=== PATIENT | male | born 1960 | race Caucasian/White ===

== ENCOUNTER → 2020-08-19 13:23 | Outpatient (BNVA) | payer BC, SELFPAY | PROVIDERS: PCP Internal Medicine; Visit Provider Internal Medicine Cardiovascular Disease ==

== ENCOUNTER → 2021-04-15 08:49 | Outpatient (BNVA) | payer BC, SELFPAY | PROVIDERS: PCP Internal Medicine; Visit Provider Internal Medicine Cardiovascular Disease | DX: Z45.02 Encounter for adjustment and management of automatic implantable cardiac defibrillator (principal); G90.1 Familial dysautonomia [Riley-Day]; I51.7 Cardiomegaly | CPT/HCPCS: 93005 ==

== ENCOUNTER → 2021-09-26 07:19 | Outpatient (REF) | payer BC, SELFPAY ==
--- NOTE | 2021-09-26 07:22 | CA_ITS ---
Transthoracic Echocardiogram Patient (Last, First, Middle): Pawel Jaimes H Gender: Male Date of : 1960 Age: 60 Procedure Date: 09/26/2021 Procedure Type: Transthoracic Echocardiogram Location: OP Height: 182.88 cm Weight: 88.45 kg BSA: 2.11 m2 Heart Rate: bpm BP: 125 / 90 mmHg Correction Officer: Referring MD: Javi Melgoza MD Symptoms: I51.7 - Cardiomegaly Study Quality: Fair ECG Rhythm: Ventriculary paced rhythm Conclusions: - The left ventricular systolic function is normal. The calculated ejection fraction is 59% by biplane method. - Mildly increased right ventricular cavity size. RV basal diameter 4.4cm. - There is low normal right ventricular systolic function. TAPSE 1.7cm. - There is mild calcification of the aortic valve. - There is mild tricuspid valve regurgitation. - There is mild dilatation of the ascending aorta measuring 3.80 cm. Aortic arch has been measured at 4 cm, but suboptimal image for measurement. Consider repeating in 6 months. Findings Left Ventricle Normal left ventricular cavity size. There is normal left ventricular wall thickness. The left ventricular systolic function is normal. The calculated ejection fraction is 59% by biplane method. There is no evidence of regional wall motion abnormalities. There is mild septal and mild basal asymmetric hypertrophy. Right Ventricle Mildly increased right ventricular cavity size. There is low normal right ventricular systolic function. There is a pacemaker wire seen in the right ventricle. RV basal diameter 4.4cm. Atria Both atria are normal in size. Aortic Valve There is a normal trileaflet aortic valve. There is mild calcification of the aortic valve. There is no aortic valve stenosis. There is no aortic valve regurgitation. Mitral Valve The mitral valve appears normal. There is trace mitral valve regurgitation. There is no mitral valve stenosis. Pulmonic Valve The pulmonic valve was not well visualized. There is trace pulmonic valve regurgitation. Tricuspid Valve There is mild tricuspid valve regurgitation. The pulmonary artery systolic pressure is normal. Great Vessels There is mild dilatation of the ascending aorta measuring 3.80 cm. Aortic arch has been measured at 4 cm, but suboptimal image for measurement. Venous The inferior vena cava is normal in size and collapses greater than 50% with inspiration. Pericardium/Pleural Prominent epicardial adipose tissue noted. There is no evidence of pericardial effusion. Prior Study Comparison Changes noted compared to prior study dated: 03/05/2020. Slight increase in ascending aortic size. See comment on arch. Measurements 2D Linear Measurements IVSd: 0.96 0.6-0.9/0.6-1.0 cm LVIDd: 3.98 3.9-5.3/4.2-5.9 cm LVIDd Index: 1.89 2.4-3.2/2.2-3.1 cm/m2 LVIDs: 2.02 2.0-3.6 cm LVPWd: 1.00 0.7-1.1 cm LA Diam: 3.50 2.7-3.8/3.0-4.0 cm LAIDs Index: 1.66 1.5-2.3 cm/m2 LV Mass: 152.07 67-162/88-224 g LV Mass Index: 72.07 43-95/49-115 g/m2 LVOT Diam: 2.30 3.0+(-)1.3 cm 2D Systolic Function EF 4C: 59.50 >55% EF 2C: 56.50 >55% EF BiP: 59.10 >55% Mitral Valve MV Pk E: 0.46 MV PK A: 0.73 MV Decel Time: 227.00 E/A: 0.60 E'Lateral: 12.50 E'Medial: 6.42 E/E' Med: 7.10 E/E' Lat: 3.70 PHT: 67.00 MVA PHT: 3.28 Decel [place]: 2.02 Aortic Valve AoV Pk Joey: 1.12 AoV Mn Joey: 0.83 AoV VTI: 0.25 AoV Pk Grad: 5.00 Aov Mn Grad: 3.00 CAROL Cont.VTI: 3.39 LVOT LVOT Pk Joey: 0.95 LVOT Mn Joey: 0.64 LVOT VTI: 0.21 LVOT Pk Grad: 4.00 LVOT Mn Grad: 2.00 LVOT Diam: 2.30 LVOT Area: 4.15 Diastolic Function MV Pk E: 0.46 MV Pk A: 0.73 E/A: 0.60 E'Medial: 6.42 E/E' Med: 7.10 E' Laterial: 12.50 E/E' Lat: 3.70 Tricuspid Valve TR Pk Joey: 2.19 TR Pk Grad: 19.00 RA Press: 3.00 RVSP: 22.00 Great Vessels Aorta Sinus of Valsalva: 3.20 2.0-3.5 cm Ao Asc: 3.80 2.1-3.4 cm Ao Arch: 4.00 Updated in Other Vendor System with Status of Final Gabriel Bauer MD electronically signed on 09/26/2021 12:13:03 PM with status of Final
== END ==
LOC: HO.CARD 07:19
PROVIDERS: PCP Internal Medicine; Visit Provider Internal Medicine Cardiovascular Disease
DX: I51.7 Cardiomegaly (principal); D86.85 Sarcoid myocarditis
CPT/HCPCS: 93306

== ENCOUNTER → 2021-10-13 08:43 | Outpatient (BNVA) | payer BC, SELFPAY | PROVIDERS: PCP Internal Medicine; Visit Provider Internal Medicine Cardiovascular Disease | DX: Z13.89 Encounter for screening for other disorder (principal) ==

== ENCOUNTER 2021-11-18 13:49 | Outpatient (REF) | payer BC, SELFPAY ==
--- NOTE | ~2021-11-18 | US_ITS ---
EXAMINATION: US ABDOMEN COMPLETE CLINICAL INFORMATION: GERD. Abdominal pain. COMPARISON: No similar priors. TECHNIQUE: Real-time imaging of the abdominal viscera. FINDINGS: PANCREAS: Normal. ABDOMINAL AORTA: The proximal, mid, and distal segments are normal in caliber. INFERIOR VENA CAVA: Visualized portions are normal. LIVER: Normal. The liver is normal in size. The liver contour is normal. Parenchymal echogenicity is normal. No focal hepatic lesion. There is no intrahepatic biliary duct dilatation seen. GALLBLADDER: Normal. The gallbladder is physiologically distended without evidence of stones, sludge, polyps, wall thickening or pericholecystic fluid. COMMON BILE DUCT: Normal in caliber measuring 0.3 cm in diameter. RIGHT KIDNEY: There is a 2.3 x 1.5 x 1.8 cm simple cyst in the mid pole for which no imaging follow-up is recommended. No hydronephrosis or renal calculi. The kidney measures 10.8 cm in maximum dimension. LEFT KIDNEY: There is a 2.4 x 2.3 x 1.8 cm cyst in the midpole with peripheral hyperechoic foci, likely calcifications. No hydronephrosis or renal calculi. The kidney measures 10.9 cm in maximum dimension. SPLEEN: Normal. The spleen measures 9.6 cm in maximum dimension. FREE FLUID: None. US/US abdomen complete IMPRESSION: 1. There is a 2.4 cm minimally complicated cyst in the mid pole of the left kidney with peripheral calcifications, for which a follow-up ultrasound in 6-12 months is recommended. 2. Otherwise, normal examination.
== END 2021-11-18 13:50 | disposition home or self-care (01) ==
LOC: HO.US 13:49
PROVIDERS: Visit Provider Internal Medicine
DX: K21.9 Gastro-esophageal reflux disease without esophagitis (principal); R10.13 Epigastric pain
CPT/HCPCS: 76700

== ENCOUNTER 2022-01-30 06:20 | Day surgery (SDC) | payer BC, SELFPAY ==
[2022-01-23 16:37] VITALS: BMI 25.6
--- NOTE | 2022-01-27 08:30 | HO.ANESPROP2 ---
HPI - Anesthesia Eval Consult details Narrative: 61yo M for Upper Endoscopy and Colonoscopy ICD in situ Cardiac sarcoid - not active per 09/2021 cardiac note PMFSH Active Problems Active Problems: All Active Problems (Updated 10/13/21 @ 09:30 by Javi Melgoza MD) Enlarged thoracic aorta (Acute) Right ventricular enlargement (Acute) Dysautonomia (Acute) Cardiac sarcoidosis (Acute) ICD (implantable cardioverter-defibrillator) in place (Acute) Past Medical History Medical History Cardiac sarcoidosis Dysautonomia ICD (implantable cardioverter-defibrillator) in place Family History Family History Father Hypotensive syncope Mother No problems noted. Surgical History Surgical History History of permanent cardiac pacemaker placement Hx of colonoscopy Hx of hernia repair Hx of knee surgery Social History Social History Patient Tobacco Use Status: Former Tobacco user Are you DNR?: No Advance Directives: No Advance Directives Information Provided: Yes Recently lost weight without trying: No Nutrition Risks: No Nutritional Risk Meds Allergies Allergy/AdvReac Type Severity Reaction Status Date / Time No Known Allergies Allergy Unverified 03/04/20 15:16 Home Medications Medication Instructions Recorded Confirmed Last Taken Type atorvastatin 20 mg tablet 20 mg PO DAILY 08/19/20 01/30/22 01/29/22 History paroxetine HCl 10 mg tablet 10 mg PO DAILY 08/19/20 01/30/22 01/29/22 History metoprolol succinate 25 mg 25 mg PO DAILY 04/15/21 01/30/22 01/29/22 History tablet,extended release 24 hr famotidine 20 mg tablet (Heartburn 20 mg PO DAILY 01/30/22 01/30/22 01/29/22 History Prevention) omeprazole 20 mg capsule,delayed 20 mg PO BID 01/30/22 01/30/22 01/29/22 History release Exam Exam Date and Time: January 27, 2022 0830 Height,Weight and Vital Signs: Height 6 ft 1 in Weight 87.997 kg Narrative Narrative: ECHO 09/2021 Conclusions: - The left ventricular systolic function is normal.? The ? calculated ejection fraction is 59% by biplane method. ? - Mildly increased right ventricular cavity size. RV basal ? ? ? diameter 4.4cm.? - There is low normal right ventricular systolic function. TAPSE 1.7cm. ? - There is mild calcification of the aortic valve. ? - There is mild tricuspid valve regurgitation. ? - There is mild dilatation of the ascending aorta measuring 3.80 cm.? Aortic arch has been measured at 4 cm, but suboptimal image for measurement. Consider repeating in 6 months. ? ? EKG 03/2021 atrially paced rhythm, ventricularly sensed rhythm with PVCs Cardiac Device Check 09/2021 Details: Dual-chamber Medtronic ICD in place.? Programmed in MVP mode with rate response at 60 beats per minute.? Atrial pacing 60% of the time.? Ventricular pacing 10% of the time.? No arrhythmias noted.? Atrial ventricular sensing is excellent.? Atrial ventricular pacing thresholds excellent and reprogrammed to enhance battery life.? Pacing and shock lead impedance is stable.? Battery life is at about 13 months Assessment and Plan Assessment Anesthesia Assessment: Chart Reviewed
[2022-01-30 06:27] VITALS: BP 130/92; PULSE 77; RESP 17; TEMP 36.2; O2SAT 97
[2022-01-30] MEDS: Lactated Ringers 1,000 ML 50 ML IVCONT (06:46)
--- NOTE | 2022-01-30 07:13 | P.CONAN_ITS ---
[facility] Active Problems Active Problems: All Active Problems (Updated 10/13/21 @ 09:30 by Javi Melgoza MD) Enlarged thoracic aorta (Acute) Right ventricular enlargement (Acute) Dysautonomia (Acute) Cardiac sarcoidosis (Acute) ICD (implantable cardioverter-defibrillator) in place (Acute) Past Medical History Medical History Cardiac sarcoidosis Dysautonomia ICD (implantable cardioverter-defibrillator) in place Family History Family History Father Hypotensive syncope Mother No problems noted. Family history of problems with anesthesia: No Surgical History Surgical History History of permanent cardiac pacemaker placement Hx of colonoscopy Hx of hernia repair Hx of knee surgery History of Problems with Anesthesia: No Social History Social History Patient Tobacco Use Status: Former Tobacco user Are you DNR?: No Advance Directives: No Advance Directives Information Provided: Yes Recently lost weight without trying: No Nutrition Risks: No Nutritional Risk Meds Allergies Allergy/AdvReac Type Severity Reaction Status Date / Time No Known Allergies Allergy Unverified 03/04/20 15:16 Active Medications: Current Medications Lactated Ringer's (Lr) 1,000 mls @ 50 mls/hr IVCONT .Q20H CURTIS Last Admin: 01/30/22 06:46 Dose: 50 mls/hr Sodium Biphosphate/Sodium Phosphate (Sodium Phosphate,Brewster-Dibasic 133 Ml Enema) 133 ml KS ONCE PRN PRN Reason: Poor Colonoscopy Prep Results Home Medications Medication Instructions Recorded Confirmed Last Taken Type atorvastatin 20 mg tablet 20 mg PO DAILY 08/19/20 01/30/22 01/29/22 History paroxetine HCl 10 mg tablet 10 mg PO DAILY 08/19/20 01/30/22 01/29/22 History metoprolol succinate 25 mg 25 mg PO DAILY 04/15/21 01/30/22 01/29/22 History tablet,extended release 24 hr Exam Exam Date and Time: January 30, 202213 Height,Weight and Vital Signs: Height 6 ft 1 in Weight 87.997 kg Last Vital Signs Temp 97.2 F 01/30/22 06:27 Pulse 77 01/30/22 06:27 Resp 17 01/30/22 06:27 BP 130/92 H 01/30/22 06:27 Pulse Ox 97 01/30/22 06:27 O2 Del Method 01/30/22 06:27 Airway Mallampati Class: III TM Dist: >3cm Neck ROM: Full Loose/Missing/Broken Teeth: No Heart: rrr Lungs: clear Assessment and Plan Final Anesthetic Review Family History of Problems with Anesthesia: No History of Problems with Anesthesia: No NPO: Yes ASA Class: III Final Preanesthetic Review: No Changes in Pt Med Stat, Meds/Allgs Chart Reviewed, Consent Obtained/Reviewed and Anes Risks/Benef Reviewed Patient Risk: Intermediate Procedure Risk: Low Anesthetic Plan Anesthetic Plan: MAC: Disposition: Standard PACU
[2022-01-30 08:35] VITALS: BP 125/90; PULSE 62; RESP 20; TEMP 36.2; O2SAT 98
--- NOTE | 2022-01-30 08:41 | P.BOP_ITS ---
Brief Operative Note Date of Service: 01/30/22 Pre-op diagnosis: GERD, Cartagena's, Screening Post-op diagnosis: other (Colon polyps, Same) Procedure: EGD with bx, Colonoscopy to the cecum with bx/removal of polyps Surgeon: Pawel Shelton Anesthesia: MAC Was an Disaster Director used for this Procedure?: No Estimated blood loss (mL): 2.0 Pathology: other (A. EG Junction at 36cm B. Polyps at 60cm) Condition: stable Disposition: PACU
[2022-01-30 08:50] VITALS: BP 140/98; PULSE 61; RESP 16; TEMP 36.2; O2SAT 95
--- NOTE | 2022-01-30 10:04 | OP_ITS ---
SURGEON: Pawel Shelton MD INDICATIONS: The patient presents for evaluation of reflux, Cartagena esophagus, and colorectal cancer screening. Full consent obtained from him for this, including risks of bleeding and perforation. PREOPERATIVE DIAGNOSIS: POSTOPERATIVE DIAGNOSIS: PROCEDURE PERFORMED: Esophagogastroduodenoscopy with biopsies, and colonoscopy to the cecum and terminal ileum with biopsy removal of polyps. ESTIMATED BLOOD LOSS: COMPLICATIONS: ANESTHESIA: Monitored anesthesia care. ASSISTANTS: SPECIMENS: PREOPERATIVE DIAGNOSES: Gastroesophageal reflux, history of Cartagena esophagus, colorectal cancer screening. POSTOPERATIVE DIAGNOSES: Small hiatal hernia, colon polyps, diverticulosis and internal hemorrhoids. DESCRIPTION OF PROCEDURE: The patient was placed in the left lateral decubitus position. The Olympus video gastroscope was passed in the posterior oropharynx and upper esophagus under direct vision. The scope was passed slowly into the distal esophagus. The gastroesophageal junction appeared at 36 cm. There was some very minimal irregularity, consistent with reflux and possibly small areas of Cartagena mucosa. There was no esophagitis nor any sign of mass. There was a minimal hiatal hernia. The scope entered into the stomach and was advanced to pylorus. The duodenum was cannulated to the descending portion. The duodenum including the bulb appeared normal without mass or ulceration. Scope was withdrawn back in the stomach. The gastric antrum and body appeared normal with good peristalsis. Scope was retroflexed visualizing the proximal stomach carefully which appeared normal, without any sign of mass or ulceration, other than some hyperplastic appearing gastric polyps which had been biopsied on previous occasions. The previous fundoplication appeared to be intact. The scope was straightened and withdrawn back to the esophagus. Biopsies were obtained at the EG junction at 36 cm. Proximal to this, esophageal mucosa appeared normal. The scope was withdrawn from the patient. He was turned around for colonoscopy. The digital rectal exam revealed no abnormalities. The Olympus video pediatric colonoscope was entered into the rectum and advanced easily to the cecum. Once in the cecum, I did identify normal-appearing cecal pouch with appendiceal orifice and a normal-appearing ileocecal valve. The terminal ileum was cannulated and appeared normal. The scope was withdrawn back into the colon. The entire cecum and ileocecal valve appeared normal. The scope was slowly withdrawn assessing all mucosal surfaces carefully. Preparation was excellent. At 60 cm were 2 flat less than 5 mm polyps, which were each biopsied and completely removed with cold biopsy forceps. I did not visualize any other polyps, colitis, nor angiodysplasia. There was a mild amount of sigmoid diverticulosis. In the rectum, scope was retroflexed visualizing internal hemorrhoids, but no other pathology. The rectal mucosa appeared normal. The scope was straightened and withdrawn from the patient. He tolerated both procedures well and was returned to recovery area in stable condition. IMPRESSION: 1. Small colon polyps, status post biopsy removal. 2. Mild diverticulosis. 3. Internal hemorrhoids. 4. Small hiatal hernia, gastroesophageal reflux, history of Cartagena esophagus. PLAN: The results of biopsies will be checked. If the polyps are adenomas and the upper endoscopy biopsies do not show any dysplasia, I would recommend a repeat upper endoscopy and colonoscopy within 5 years. He was advised to continue his current regimen of omeprazole 40 mg b.i.d. and famotidine b.i.d. for relief of his reflux, which he reports currently is working well. I would not recommend any further workup at this time given that he has already had a fundoplication. If he is doing well, he would see me in the interim on a p.r.n. basis. Of note, I did remind him to follow up with his primary care physician about the renal cyst that I had advised him of previously. This has been discussed with his . MD JARET Jimenez/STANLEY / [id number]
== END 2022-01-30 09:19 | disposition home or self-care (01) ==
PROVIDERS: PCP Internal Medicine; Visit Provider Internal Medicine
PROC: (CPT 45380; principal; 2022-01-30 07:30)
DX: Z12.11 Encounter for screening for malignant neoplasm of colon (principal); D12.4 Benign neoplasm of descending colon; K57.30 Diverticulosis of large intestine without perforation or abscess without bleeding; K64.8 Other hemorrhoids; K21.9 Gastro-esophageal reflux disease without esophagitis; Z87.19 Personal history of other diseases of the digestive system; K44.9 Diaphragmatic hernia without obstruction or gangrene; K31.7 Polyp of stomach and duodenum; K22.70 Barrett's esophagus without dysplasia; D86.89 Sarcoidosis of other sites; I10 Essential (primary) hypertension; Z95.810 Presence of automatic (implantable) cardiac defibrillator; N28.1 Cyst of kidney, acquired; Z79.82 Long term (current) use of aspirin; Z79.899 Other long term (current) drug therapy; F41.1 Generalized anxiety disorder; Z87.891 Personal history of nicotine dependence
CPT/HCPCS: 45380; 43239; 88305

== ENCOUNTER → 2022-05-10 10:55 | Outpatient (BNVA) | payer BC, SELFPAY | PROVIDERS: PCP Internal Medicine; Referring Provider Internal Medicine; Visit Provider Internal Medicine Cardiovascular Disease | DX: G90.1 Familial dysautonomia [Riley-Day] (principal); I77.89 Other specified disorders of arteries and arterioles; Z95.810 Presence of automatic (implantable) cardiac defibrillator | CPT/HCPCS: 93005 ==

== ENCOUNTER → 2022-10-16 07:52 | Outpatient (REF) | payer BC, SELFPAY ==
--- NOTE | 2022-10-16 07:54 | CA_ITS ---
Transthoracic Echocardiogram Patient (Last, First, Middle): Pawel Jaimes H Gender: Male Date of : 1960 Age: 61 Procedure Date: 10/16/2022 Procedure Type: Transthoracic Echocardiogram Location: OP Height: 182.88 cm Weight: 86.18 kg BSA: 2.08 m2 Heart Rate: bpm BP: 142 / 90 mmHg Metal Treater: MAGDA Referring MD: Javi Melgoza MD Slitter And Cutter Operator: Javi Melgoza MD Symptoms: I77.89 - Other specified disorders of arteries and arterioles Study Quality: Adequate ECG Rhythm: Sinus Conclusions: - 1. Normal LV systolic function with mild LVH with impaired relaxation filling pattern 2. Trivial aortic regurgitation 3. Normal RV systolic pressure 4. Mildly dilated ascending aorta at 3.9 cm 5. No pericardial effusion Findings Left Ventricle Normal left ventricular size and systolic function. There is mildly increased left ventricular wall thickness. The visually estimated ejection fraction is between 55-60%. Spectral Doppler is indicative of an impaired relaxation filling pattern. E/E prime ratio is <8, consistent with normal filling pressures. Evidence suggests grade I (mild) diastolic dysfunction. Peak GLS is -17.9%, which is borderline. Right Ventricle Mildly increased right ventricular cavity size. There is normal right ventricular systolic function. Atria Both atria are normal in size. Interatrial shunt cannot be excluded. Aortic Valve The aortic valve structure and function is likely normal. There is no aortic valve stenosis. There is trace (trivial) aortic valve regurgitation. Mitral Valve There is mild anterior and posterior mitral leaflet thickening. There is trace mitral valve regurgitation. There is no mitral valve stenosis. Pulmonic Valve The pulmonic valve is likely normal. There is trace pulmonic valve regurgitation. Tricuspid Valve Normal tricuspid valve structure. There is mild tricuspid valve regurgitation. The right ventricular systolic pressure is normal. The right ventricular systolic pressure is 30 mmHg. Normal right atrial pressure. There is no evidence of pulmonary hypertension. Great Vessels The pulmonary artery was not well visualized. There is mild dilatation of the ascending aorta measuring 3.90 cm. Venous The inferior vena cava is normal in size and collapses greater than 50% with inspiration. Pericardium/Pleural There is no evidence of pericardial effusion. Measurements 2D Linear Measurements IVSd: 1.25 0.6-0.9/0.6-1.0 cm LVIDd: 3.84 3.9-5.3/4.2-5.9 cm LVIDd Index: 1.85 2.4-3.2/2.2-3.1 cm/m2 LVIDs: 2.32 2.0-3.6 cm LVPWd: 1.13 0.7-1.1 cm LA Diam: 3.30 2.7-3.8/3.0-4.0 cm LAIDs Index: 1.59 1.5-2.3 cm/m2 LV Mass: 191.38 67-162/88-224 g LV Mass Index: 92.01 43-95/49-115 g/m2 LVOT Diam: 2.10 3.0+(-)1.3 cm 2D Systolic Function EF 4C: 54.60 >55% EF 2C: 59.80 >55% EF BiP: 58.10 >55% Mitral Valve MV Pk E: 0.60 MV PK A: 0.70 MV Decel Time: 271.00 E/A: 0.90 E'Lateral: 8.70 E'Medial: 5.22 E/E' Med: 11.50 E/E' Lat: 6.90 PHT: 79.00 MVA PHT: 2.78 Decel Stevens: 2.21 Aortic Valve AoV Pk Joey: 1.00 AoV Mn Joey: 0.70 AoV VTI: 0.24 AoV Pk Grad: 4.00 Aov Mn Grad: 2.00 CAROL Cont.VTI: 2.66 LVOT LVOT Pk Joey: 0.78 LVOT Mn Joey: 0.52 LVOT VTI: 0.18 LVOT Pk Grad: 2.00 LVOT Mn Grad: 1.00 LVOT Diam: 2.10 LVOT Area: 3.46 Diastolic Function MV Pk E: 0.60 MV Pk A: 0.70 E/A: 0.90 E'Medial: 5.22 E/E' Med: 11.50 E' Laterial: 8.70 E/E' Lat: 6.90 Right Ventricle TAPSE (mm): 18.70 TVS' Joey: 11.60 Tricuspid Valve TR Pk Joey: 2.32 TR Pk Grad: 22.00 RA Press: 8.00 RVSP: 30.00 Great Vessels Aorta Sinus of Valsalva: 4.30 2.0-3.[address] [place]: 3.36 1.7-3.4 cm Ao Asc: 3.90 2.1-3.4 cm Updated in Other Vendor System with Status of Final Javi Melgoza MD electronically signed on 10/16/2022 11:19:22 AM with status of Final
== END ==
LOC: HO.CARD 07:52
PROVIDERS: PCP Internal Medicine; Visit Provider Internal Medicine Cardiovascular Disease
DX: I77.89 Other specified disorders of arteries and arterioles (principal)
CPT/HCPCS: 93306; 93356

== ENCOUNTER → 2022-10-20 10:06 | Outpatient (BNVA) | payer BC, SELFPAY | PROVIDERS: PCP Internal Medicine; Referring Provider Internal Medicine Cardiovascular Disease; Visit Provider Surgery ==

== ENCOUNTER → 2022-10-25 09:25 | Outpatient (BNVA) | payer BC, SELFPAY | PROVIDERS: PCP Internal Medicine; Referring Provider Internal Medicine; Visit Provider Internal Medicine Cardiovascular Disease | DX: I77.89 Other specified disorders of arteries and arterioles (principal); Z95.810 Presence of automatic (implantable) cardiac defibrillator | CPT/HCPCS: 93005 ==

== ENCOUNTER 2022-12-06 05:59 | Day surgery (SDC) | payer BC, SELFPAY ==
[2022-12-01 12:13] VITALS: BMI 27.3
--- NOTE | 2022-12-05 08:25 | MHC.SHP ---
Pre-Procedural Eval Section A Date of Service: 12/05/22 The patient is an INPATIENT: No Changes since office visit: No Cold of Flu in the past 2 weeks, No New Medical Problems, No Changes in Medication and No Patient answered all questions The History & Physical has been completed within 30 days and I have reviewed it.: Yes Section B Chief Complaint: Encounter for adjustment and management of automat Allergies: Allergies Allergy/AdvReac Type Severity Reaction Status Date / Time No Known Allergies Allergy Verified 12/01/22 11:57 Plan I have reviewed the history and physical and performed a pertinent physical examination on my patient. No changes have occurred unless specified. Time Spent With Patient Time: Total time managing care of this patient today ____ minutes.
--- NOTE | 2022-12-05 10:24 | P.CONAN_ITS ---
HPI - Anesthesia Eval Consult details Narrative: 61yo M for ICD Generator Change ICD in situ for Vent Tach, suspected cardiac sarcoid PMFSH Active Problems Active Problems: All Active Problems (Updated 12/01/22 @ 12:12 by Sierra Calderon RN) Right ventricular enlargement (Acute) Enlarged thoracic aorta (Acute) Pulse generator of implantable cardioverter-defibrillator (ICD) at end of life (Acute) Dysautonomia (Acute) Cardiac sarcoidosis (Acute) ICD (implantable cardioverter-defibrillator) in place (Acute) Past Medical History Medical History Anxiety Back pain Barretts esophagus Cardiac sarcoidosis Dysautonomia GERD (gastroesophageal reflux disease) ICD (implantable cardioverter-defibrillator) in place On beta watson at home Presence of combination internal cardiac defibrillator (ICD) and pacemaker Family History Family History Father Hypotensive syncope Mother No problems noted. Family history of problems with anesthesia: No Surgical History Surgical History History of esophagogastroduodenoscopy (EGD) History of permanent cardiac pacemaker placement Hx of colonoscopy Hx of hernia repair Hx of knee surgery History of Problems with Anesthesia: No Social History Social History Are you a primary senior care assistant to a significant other at home: No Do you presently have visiting nurse or other home services: No Alcohol intake: current Alcohol intake frequency: holidays/special occasions only Patient Tobacco Use Status: Former Tobacco user Quit Date: 1989 Tobacco use type: Cigarette Years Smoked: 4 +/- Meds Allergies Allergy/AdvReac Type Severity Reaction Status Date / Time No Known Allergies Allergy Verified 12/01/22 11:57 Home Medications Medication Instructions Recorded Confirmed Last Taken Type paroxetine HCl 10 mg tablet 10 mg PO DAILY 08/19/20 12/01/22 01/29/22 History metoprolol succinate 25 mg 25 mg PO DAILY 04/15/21 12/01/22 01/29/22 History tablet,extended release 24 hr famotidine 20 mg tablet (Heartburn 20 mg PO DAILY 01/30/22 12/01/2222 History Prevention) omeprazole 20 mg capsule,delayed 20 mg PO BID 01/30/22 12/01/22 01/29/22 History release amlodipine 2.5 mg tablet 2.5 mg PO DAILY 05/10/22 12/01/22 Unknown History atorvastatin 10 mg tablet 10 mg PO DAILY 05/10/22 12/01/22 Unknown History Exam Exam Date and Time: December 05, 2022 1024 Height,Weight and Vital Signs: Height 6 ft 1 in Weight 93.894 kg Narrative Narrative: Cardiac Device Check 10/2022 Details: Dual-chamber Medtronic ICD in place programmed in MVP mode with rate response at 60 beats per minute.? Patient is very active as per the device check.? Pacing and shock lead impedance is stable.? Atrial pacing about 65% of the time.? Ventricular pacing about 17% of the time.? No ventricular arrhythmias noted.? Battery life is [place] [id number] Cardiac Device Check, dual lead implantable defibrillator Procedure code (CPT) selection complete EKG 10/2022 Details: EKG shows normal sinus rhythm with first-degree AV block with nonspecific ST changes ECHO 10/2022 Conclusions: - 1.? Normal LV systolic function with mild LVH with impaired? ? relaxation filling pattern ? 2.? Trivial aortic regurgitation ? 3.? Normal RV systolic pressure? 4.? Mildly dilated ascending aorta at 3.9 cm ? 5.? No pericardial effusion? Assessment and Plan Assessment Anesthesia Assessment: Chart Reviewed Final Anesthetic Review Family History of Problems with Anesthesia: No History of Problems with Anesthesia: No
[2022-12-06 06:40] VITALS: BP 153/109; PULSE 64; RESP 16; TEMP 36.2; O2SAT 98
[2022-12-06] MEDS: Lactated Ringers 1,000 ML 50 ML IVCONT (06:48)
--- NOTE | 2022-12-06 07:59 | P.CONAN_ITS ---
[facility] Active Problems Active Problems: All Active Problems (Updated 12/01/22 @ 12:12 by Sierra Calderon RN) Right ventricular enlargement (Acute) Enlarged thoracic aorta (Acute) Pulse generator of implantable cardioverter-defibrillator (ICD) at end of life (Acute) Dysautonomia (Acute) Cardiac sarcoidosis (Acute) ICD (implantable cardioverter-defibrillator) in place (Acute) Past Medical History Medical History Anxiety Back pain Barretts esophagus Cardiac sarcoidosis Dysautonomia GERD (gastroesophageal reflux disease) ICD (implantable cardioverter-defibrillator) in place On beta watson at home Presence of combination internal cardiac defibrillator (ICD) and pacemaker Functional capacity: independent ambulation Family History Family History Father Hypotensive syncope Mother No problems noted. Family history of problems with anesthesia: No Surgical History Surgical History History of esophagogastroduodenoscopy (EGD) History of permanent cardiac pacemaker placement Hx of colonoscopy Hx of hernia repair Hx of knee surgery History of Problems with Anesthesia: No Social History Social History Are you a primary toddler caregiver to a significant other at home: No Do you presently have visiting nurse or other home services: No Alcohol intake: current Alcohol intake frequency: holidays/special occasions only Patient Tobacco Use Status: Former Tobacco user Quit Date: 1989 Tobacco use type: Cigarette Years Smoked: 4 +/- Use of substances other than those prescribed or required for medical reasons: No Have you been hit, kicked, punched, or otherwise hurt by someone within the past year? If so, by whom?: No Are you DNR?: No Advance Directives: No Advance Directives Information Provided: Yes Advance Directives on File: No Recently lost weight without trying: No Eating poorly because of decreased appetite: No Nutrition Risks: No Nutritional Risk Meds Allergies Allergy/AdvReac Type Severity Reaction Status Date / Time No Known Allergies Allergy Verified 12/01/22 11:57 Active Medications: Current Medications Lactated Ringer's (Lr) 1,000 mls @ 50 mls/hr IVCONT .Q20H CURTIS Last Admin: 12/06/22 06:48 Dose: 50 mls/hr Home Medications Medication Instructions Recorded Confirmed Last Taken Type paroxetine HCl 10 mg tablet 10 mg PO DAILY 08/19/20 12/01/22 01/29/22 History metoprolol succinate 25 mg 25 mg PO DAILY 04/15/21 12/01/22 01/29/22 History tablet,extended release 24 hr famotidine 20 mg tablet (Heartburn 20 mg PO DAILY 01/30/22 12/01/22 01/29/22 History Prevention) omeprazole 20 mg capsule,delayed 20 mg PO BID 01/30/22 12/01/22 01/29/22 History release amlodipine 2.5 mg tablet 2.5 mg PO DAILY 05/10/22 12/01/22 Unknown History atorvastatin 10 mg tablet 10 mg PO DAILY 05/10/22 12/01/22 Unknown History Exam Exam Date and Time: December 06, 2022 0759 Height,Weight and Vital Signs: Height 6 ft 1 in Weight 93.894 kg Last Vital Signs Temp 97.1 F 12/06/22 06:40 Pulse 64 12/06/22 06:40 Resp 16 12/06/22 06:40 BP 153/109 H 12/06/22 06:40 Pulse Ox 98 12/06/22 06:40 O2 Del Method Room Air 12/06/22 06:40 Airway Mallampati Class: II TM Dist: >3cm Neck ROM: Full Heart: RRR Lungs: CTA Assessment and Plan Final Anesthetic Review Family History of Problems with Anesthesia: No History of Problems with Anesthesia: No ASA Class: II Final Preanesthetic Review: Meds/Allgs Chart Reviewed, Consent Obtained/Reviewed and Anes Risks/Benef Reviewed Patient Risk: Intermediate Procedure Risk: Low Anesthetic Plan Anesthetic Plan: MAC: Disposition: Standard PACU
--- NOTE | 2022-12-06 08:09 | W.PM.OPN ---
Operative Note Operative Note Date of Service: 12/06/22 Narrative: Preoperative diagnosis: [] ICD generator depletion Postop diagnosis: [] Same Procedure [] generator replacement of ICD device Surgeon: [] Neil Housekeeping Director: [] izaiah Gilmore Type of Anesthesia: [] MAC Indication for surgery: [] Generator depletion Findings: [] Patient brought to the operating room, placed on operative table in supine position, after adequate level of MAC anesthesia was induced, the left chest was prepped and draped in usual sterile fashion. Patient underwent 1% lidocaine/0.5% Marcaine infiltration at the incision site from the prior scar from the previous generator placement and was carried down through skin, subcutaneous tissue were moderate amount of cicatrization and scarring were encountered. Generator pocket was identified and entered sharply. Generator was removed and atrial and ventricular leads were uneventfully changed, screwed in, secured, into the new generator which was then replaced into the pocket. Interrogation by [employer] showed the data to be stable to patient's preoperative values. Please refer to [employer] work sheet regarding these. Wound was irrigated, secured hemostasis, closed in the following manner; deep subcutaneous tissues were approximated using interrupted 3-0 Vicryl sutures. Interrupted inverted deep dermal 3-0 Vicryl sutures followed by running subcuticular 4-0 Vicryl suture were placed. Steri-Strips and sterile dressings were applied. Sponge, needle, and instrument counts were reported to be correct. Patient tolerated the procedure well and emerged anesthesia stable condition. EBL none
[2022-12-06 08:21] VITALS: BP 145/98; PULSE 60; RESP 16; TEMP 36.2; O2SAT 96
[2022-12-06 08:36] VITALS: BP 151/101; PULSE 60; RESP 16; O2SAT 95
[2022-12-06 08:50] VITALS: BP 158/102; PULSE 60; RESP 16; TEMP 36.2; O2SAT 95
== END 2022-12-06 09:47 | disposition home or self-care (01) ==
PROVIDERS: PCP Internal Medicine; Visit Provider Surgery
PROC: 0JPT0PZ Removal of Cardiac Rhythm Related Device from Trunk Subcutaneous Tissue and Fascia, Open Approach (ICD-10-PCS; CPT 33263; principal; 2022-12-06 07:30)
DX: Z45.02 Encounter for adjustment and management of automatic implantable cardiac defibrillator (principal); I51.7 Cardiomegaly; I77.810 Thoracic aortic ectasia; D86.85 Sarcoid myocarditis; G90.1 Familial dysautonomia [Riley-Day]; Z79.899 Other long term (current) drug therapy; Z87.891 Personal history of nicotine dependence
CPT/HCPCS: 33263; C1721; J0690; J2250; J2795; J3010

== ENCOUNTER → 2022-12-13 09:41 | Outpatient (BNVA) | payer BC, SELFPAY | PROVIDERS: PCP Internal Medicine; Visit Provider Surgery | DX: M75.42 Impingement syndrome of left shoulder (principal); Z95.810 Presence of automatic (implantable) cardiac defibrillator; Z98.890 Other specified postprocedural states | CPT/HCPCS: 20610; J3301 ==

== ENCOUNTER 2023-02-07 05:07 | Outpatient (REF) | payer BC, SELFPAY ==
--- NOTE | ~2023-02-07 | XR_ITS ---
EXAMINATION: XR SHOULDER, LEFT CLINICAL INFORMATION: Pain. COMPARISON: None available. TECHNIQUE: AP neutral and scapular Y views of the left shoulder are submitted. FINDINGS: Bony alignment and mineralization are normal. The glenohumeral joint is intact and shows mild osteoarthritic change. The acromioclavicular and coracoclavicular intervals are normal. No fracture or dislocation is seen. There is no soft tissue calcifications or foreign body. No left pneumothorax is seen. A subclavian pacemaker device is noted. XR/XR shoulder LT min 2V IMPRESSION: 1. There is mild osteoarthritic change of the left glenohumeral joint. 2. No fracture or dislocation is seen.
== END 2023-02-07 05:08 | disposition home or self-care (01) ==
LOC: HO.HOSX 05:07
PROVIDERS: Visit Provider Orthopaedic Surgery
DX: M25.512 Pain in left shoulder (principal); M75.42 Impingement syndrome of left shoulder; Z79.899 Other long term (current) drug therapy
CPT/HCPCS: 73030

== ENCOUNTER 2023-02-07 08:25 | Outpatient (AMB) | payer BC, SELFPAY ==
--- NOTE | 2023-02-07 08:39 | MHC.OFFVIS ---
Intake Vital Signs 02/07/23 08:40 Height 6 ft Weight 187 lb BMI 25.4 Intake Visit Reasons: OV-Left shoulder pain Intake Note: Pawel a 61 year old right hand dominant male who presents today for a follow up of left shoulder, last injection 12/13/22. Patient reports injection did not provide him with any relief and continues to have throbbing pain. He would like to discuss other options. Patient describes his pain as sharp in nature. He has increased pain when lifting his left hand above shoulder height. H he has also done physical therapy for 12 weeks over the last 6 months which aggravated his pain. He is not able to get an MRI because he has a pacemaker/defibrillator. He has tried Tylenol and anti-inflammatory medicines which gave him minimal relief. Allergies No Known Allergies Allergy (Verified 02/07/23 08:54) Medication List - Last Reconciled 02/07/23 by Jin Gooden MD amlodipine 2.5 mg PO DAILY atorvastatin 10 mg PO DAILY famotidine (Heartburn Prevention) 20 mg PO DAILY metoprolol succinate ER 25 mg PO DAILY omeprazole 20 mg PO BID oxycodone 5 mg PO Q4H PRN paroxetine HCl 10 mg PO DAILY PFSH Medical History Anxiety Back pain Barretts esophagus Cardiac sarcoidosis Dysautonomia GERD (gastroesophageal reflux disease) ICD (implantable cardioverter-defibrillator) in place On beta watson at home Presence of combination internal cardiac defibrillator (ICD) and pacemaker Surgical History History of esophagogastroduodenoscopy (EGD) History of permanent cardiac pacemaker placement Hx of colonoscopy Hx of hernia repair Hx of knee surgery Family History Father Hypotensive syncope Mother No problems noted. Social History Are you a primary hospice home care coordinator to a significant other at home: No Do you presently have visiting nurse or other home services: No Alcohol intake: current Alcohol intake frequency: holidays/special occasions only Patient Tobacco Use Status: Former Tobacco user Quit Date: 1989 Tobacco use type: Cigarette Years Smoked: 4 +/- Current occupational status: retired Current occupation: right hand dominant Physical Exam Vital Signs: BMI result Body Mass Index 25.4 Const Other: Well-nourished well-developed very friendly male awake alert and oriented x3 in no acute distress Extrem Other: Bilateral upper extremity examination shows good capillary refill, no skin lesions noted, normal sensation light touch Left shoulder examination shows decreased range of motion when compared to his right shoulder, 4+ out of 5 strength with supraspinatus testing, positive impingement signs, tenderness over his acromioclavicular joint, no instability Results Reviewed Results Reviewed: X-rays of the patient's left shoulder taken today show severe acromioclavicular joint narrowing, type 3 acromion, no acute bony abnormalities Assessment & Plan Assessment & Plan (1) Impingement syndrome of left shoulder: Code(s): M75.42 - Impingement syndrome of left shoulder Plan Mr. Jaimes presents with progressively worsening left shoulder pain and weakness due to impingement syndrome, acromioclavicular joint arthritis and possible full-thickness rotator cuff tearing. I had a lengthy discussion with the patient regarding the treatment options. At this point he appears to be failing continued non operative treatments. The risks and benefits of left shoulder surgery were discussed at length with the patient. The patient is interested in proceeding with surgery later this year. The surgery will most likely involve left shoulder diagnostic arthroscopy with distal clavicle excision, acromioplasty and rotator cuff repair showed a full-thickness tear be found the time of his surgery. The patient will continue with his range of motion exercises in the meantime. He will contact my office to pick a surgery date when he is ready to do so. Feel free to call me at any time should questions regarding his orthopedic management arise. I spent 22 minutes in reviewing the patient's records and imaging studies, seeing the patient and documenting in the medical record. Orders: Orders XR shoulder LT min 2V Today M25.512 - Pain in left shoulder Coding Level of Care Code Est Pt Level 2 (37114) Diagnoses Impingement syndrome of left shoulder M75.42
[2023-02-07 08:40] VITALS: BMI 25.4
== END 2023-02-07 09:12 | disposition home or self-care (01) ==
PROVIDERS: PCP Internal Medicine; Visit Provider Orthopaedic Surgery
DX: M75.42 Impingement syndrome of left shoulder (principal)
CPT/HCPCS: 99212

== ENCOUNTER 2023-05-01 08:49 | Outpatient (AMB) | payer BC, SELFPAY ==
[2023-05-01 09:08] VITALS: BP 118/70; PULSE 74; BMI 25.1
--- NOTE | 2023-05-01 09:08 | MHC.OFFVIS ---
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 He has been doing well. He has been starting to run but gets muscle cramps as not able to run much but stays active and walks. Blood pressures been generally well controlled. Denies any exertional chest pain shortness of breath. No lightheadedness, syncope. No prolonged palpitation irregular heartbeat or ICD discharge. No heart failure symptoms. [facility] Medical History (Updated 05/01/23 @ 09:25 by Javi Melgoza MD) Pulse generator of implantable cardioverter-defibrillator (ICD) at end of life Anxiety On beta watson at home Back pain Barretts esophagus GERD (gastroesophageal reflux disease) Dysautonomia Cardiac sarcoidosis ICD (implantable cardioverter-defibrillator) in place Surgical History History of esophagogastroduodenoscopy (EGD) Hx of colonoscopy History of permanent cardiac pacemaker placement Hx of hernia repair Hx of knee surgery Family History Father Hypotensive syncope Mother No problems noted. Social History Are you a primary patient care specialist to a significant other at home: No Do you presently have visiting nurse or other home services: No Alcohol intake: current Alcohol intake frequency: holidays/special occasions only Patient Tobacco Use Status: Former Tobacco user Quit Date: 1989 Tobacco use type: Cigarette Years Smoked: 4 +/- Current occupational status: retired Current occupation: right hand dominant Review of Systems Const Denies chills, Denies fatigue, Denies fever(s), Denies frequent falls, Denies weakness, Denies weight gain and Denies weight loss ENT Denies dizziness Card Denies chest pain, Denies leg edema, Denies lightheadedness, Denies palpitations, Denies dyspnea, Denies dyspnea on exertion, Denies orthopnea and Denies other (loss of consciousness) Resp Denies cough, Denies dyspnea and Denies dyspnea on exertion GI Denies hematochezia and Denies change in stool character Musc Denies abnormal gait, Denies muscle weakness, Denies numbness, Denies radiating pain into limb and Denies tingling Neuro Denies abnormal gait, Denies dizziness, Denies frequent falls, Denies numbness, Denies tingling and Denies weakness Endo Denies fatigue and Denies palpitations Physical Exam Vital Signs: Last Vital Signs Pulse 74 05/01/23 09:08 BP 118/70 05/01/23 09:08 BMI result Body Mass Index 25.1 Const General: cooperative, comfortable, no acute distress, alert, awake and Physically active Nutritional Appearance: average body habitus and obese Orientation/consciousness: patient oriented x3 Limitations: no limitations Neck Neck: Yes trachea midline, Yes supple and Yes no JVD Resp Effort & Inspection: normal respiratory effort Auscultation: clear to auscultation bilaterally Cardio Jugular venous distension: no JVD Palpation: normal PMI Rate: regular rate Rhythm: regular rhythm Heart sounds: S1 normal heart sound present and S2 normal heart sound present GI Auscultation: normal bowel sounds Skin General skin exam: no rashes or lesions noted Neuro General: patient oriented x3 and no focal motor deficits Extrem General: Yes no clubbing, cyanosis or edema Psych Appearance: grossly normal Office Procedures Cardiac Device Check Cardiac Device Check Details: Dual-chamber [employer] ICD in place. Programmed in MVP mode with rate response at 60 beats per minute. Atrial pacing 50% of time. Ventricular pacing about 7% of time. No arrhythmias detected. Atrial and ventricular pacing thresholds adequate and reprogrammed to enhance battery life. Pacing and shock lead impedance is within normal limits. Battery life is excellent about 11 years. Noted impedance monitoring with elevated OptiVol although this has normalized by itself. Patient had no symptoms [id number] Cardiac Device Check, dual lead implantable defibrillator Procedure code (CPT) selection complete EKG Details: EKG shows normal sinus rhythm with nonspecific T-wave changes 62175-[id number], Complete Assessment & Plan Assessment & Plan (1) Dysautonomia: Code(s): G90.1 - Familial dysautonomia [Errol-Day] Plan: Patient with significant history of dysautonomia, with significant blood pressure as well as orthostatic hypertension. Has done well on current regimen with increase fluid intake. Currently off Florinef therapy. He knows how to manage this. We discussed again management any understands. Continue orthostatic precautions. (2) Enlarged thoracic aorta: Code(s): I77.89 - Other specified disorders of arteries and arterioles Plan: Mildly enlarged thoracic aorta. Continue to monitor annually by echocardiogram. Continue aggressive blood pressure control which is currently well optimized advised to avoid sudden strenuous isometric exercise. (3) ICD (implantable cardioverter-defibrillator) in place: Code(s): Z95.810 - Presence of automatic (implantable) cardiac defibrillator Plan: ICD in place initially as a pacemaker for AV block and subsequently a nonsustained VT and suspected diagnosis of cardiac sarcoidosis. Patient subsequently had an upgrade to dual-chamber ICD. Pulse generator was recently changed. Patient has had no significant ventricular arrhythmias on metoprolol therapy. Continue the same. ICD is working well. Will continue to follow remotely. Will follow up in the clinic in 6 months time after echocardiogram. Thank you for allowing me to partake in his care Coding Level of Care Code Est Pt Level 4 (92002) Diagnoses Dysautonomia G90.1 Enlarged thoracic aorta I77.89 ICD (implantable cardioverter-defibrillator) in place Z95.810 CPT Codes Cardiac Device Check - Cardiac Device 5: 61325-RK Cardiac Device Check, dual lead implantable defibrillator ([id number]) EKG - CPT: 41253-[id number], Complete ([id number])
== END 2023-05-01 09:25 | disposition home or self-care (01) ==
PROVIDERS: Visit Provider Internal Medicine Cardiovascular Disease
DX: G90.1 Familial dysautonomia [Riley-Day] (principal); I77.89 Other specified disorders of arteries and arterioles; I44.30 Unspecified atrioventricular block; Z95.810 Presence of automatic (implantable) cardiac defibrillator
CPT/HCPCS: 93283; 99214

== ENCOUNTER → 2023-05-01 08:49 | Outpatient (BNVA) | payer BC, SELFPAY | PROVIDERS: Visit Provider Internal Medicine Cardiovascular Disease | DX: I77.89 Other specified disorders of arteries and arterioles (principal); R94.31 Abnormal electrocardiogram [ECG] [EKG]; D86.85 Sarcoid myocarditis; G90.1 Familial dysautonomia [Riley-Day]; Z87.891 Personal history of nicotine dependence; Z45.02 Encounter for adjustment and management of automatic implantable cardiac defibrillator | CPT/HCPCS: 93005 ==

== ENCOUNTER → 2023-10-30 07:58 | Outpatient (REF) | payer BC, SELFPAY ==
--- NOTE | 2023-10-30 08:01 | CA_ITS ---
Transthoracic Echocardiogram Patient (Last, First, Middle): Pawel Jaimes H Gender: Male Date of : 1960 Age: 62 Procedure Date: 10/30/2023 Procedure Type: Transthoracic Echocardiogram Location: OP Height: 182.88 cm Weight: 83.92 kg BSA: 2.06 m2 Heart Rate: bpm BP: 124 / 70 mmHg Health Services Information Specialist: Referring MD: Javi Melgoza MD Strategic Partnership Specialist: Javi Melgoza MD Symptoms: I77.89 - Other specified disorders of arteries and arterioles Study Quality: Fair ECG Rhythm: AV paced rhythm Conclusions: - 1. Normal LV ejection fraction at 65-70% with impaired relaxation filling pattern 2. Cardiac valvular Doppler is within normal limits 3. Normal RV systolic pressure 4. Mildly dilated ascending aorta 3.9 cm 5. No gross pericardial effusion Findings Left Ventricle Normal left ventricular size, thickness, and systolic function. The visually estimated ejection fraction is between 65-70%. Spectral Doppler is indicative of an impaired relaxation filling pattern. E/E prime ratio is between 8 and 15 consistent with indeterminate filling pressures. Right Ventricle Normal right ventricular cavity size and systolic function. There is an ICD wire seen in the right ventricle. Atria The left atrium is likely dilated. The right atrium is normal in size. A pacemaker wire is identified in the right atrium. Aortic Valve Normal aortic valve structure and function. There is no aortic valve stenosis. There is trace (trivial) aortic valve regurgitation. Mitral Valve Normal mitral valve structure and function. There is trace mitral valve regurgitation. There is no mitral valve stenosis. Pulmonic Valve The pulmonic valve was not well visualized. Tricuspid Valve Likely normal tricuspid valve structure and function. There is trace tricuspid valve regurgitation. The right ventricular systolic pressure is normal. The right ventricular systolic pressure is 29 mmHg. Normal right atrial pressure. There is no evidence of pulmonary hypertension. Great Vessels The pulmonary artery was not well visualized. There is mild dilatation of the ascending aorta measuring 3.80 cm. Venous The inferior vena cava is normal in size and collapses greater than 50% with inspiration. Pericardium/Pleural There is no evidence of pericardial effusion. Measurements 2D Linear Measurements IVSd: 1.11 0.6-0.9/0.6-1.0 cm LVIDd: 4.28 3.9-5.3/4.2-5.9 cm LVIDd Index: 2.08 2.4-3.2/2.2-3.1 cm/m2 LVIDs: 2.50 2.0-3.6 cm LVPWd: 0.93 0.7-1.1 cm Ao Root: 4.00 2.1-3.5 cm LA Diam: 3.90 2.7-3.8/3.0-4.0 cm LAIDs Index: 1.89 1.5-2.3 cm/m2 LV Mass: 180.87 67-162/88-224 g LV Mass Index: 87.80 43-95/49-115 g/m2 LVOT Diam: 2.30 3.0+(-)1.3 cm 2D Systolic Function EF 4C: 68.40 >55% EF 2C: 66.60 >55% EF BiP: 67.60 >55% Mitral Valve MV Pk E: 0.59 MV PK A: 0.77 MV Decel Time: 216.00 E/A: 0.80 E'Lateral: 14.30 E'Medial: 8.92 E/E' Med: 6.60 E/E' Lat: 4.10 PHT: 63.00 MVA PHT: 3.49 Decel [place]: 2.71 Aortic Valve AoV Pk Joey: 1.13 AoV Mn Joey: 0.71 AoV VTI: 0.31 AoV Pk Grad: 5.00 Aov Mn Grad: 2.00 CAROL Cont.VTI: 2.85 LVOT LVOT Pk Joey: 0.89 LVOT Mn Joey: 0.57 LVOT VTI: 0.22 LVOT Pk Grad: 3.00 LVOT Mn Grad: 2.00 LVOT Diam: 2.30 LVOT Area: 4.15 Diastolic Function MV Pk E: 0.59 MV Pk A: 0.77 E/A: 0.80 E'Medial: 8.92 E/E' Med: 6.60 E' Laterial: 14.30 E/E' Lat: 4.10 Right Ventricle TAPSE (mm): 27.00 TVS' Joey: 13.00 Tricuspid Valve TR Pk Joey: 2.55 TR Pk Grad: 26.00 RA Press: 3.00 RVSP: 29.00 Great Vessels Aorta Ao Root-2D: 4.00 2.0-3.7 cm Ao Asc: 3.90 2.1-3.4 cm Pulmonary Valve PV Pk Joey: 0.78 Peak PV Grad: 2.00 Updated in Other Vendor System with Status of Final Javi Melgoza MD electronically signed on 10/30/2023 10:39:22 AM with status of Final
== END ==
LOC: HO.CARD 07:58
PROVIDERS: PCP Internal Medicine; Visit Provider Internal Medicine Cardiovascular Disease
DX: I77.89 Other specified disorders of arteries and arterioles (principal)
CPT/HCPCS: 93306

== ENCOUNTER → 2023-10-30 08:01 | Outpatient (BNV) | payer BC, SELFPAY | PROVIDERS: PCP Internal Medicine; Visit Provider Internal Medicine Cardiovascular Disease | DX: I34.0 Nonrheumatic mitral (valve) insufficiency (principal) | CPT/HCPCS: 93306 ==

== ENCOUNTER 2023-11-05 11:00 | Outpatient (AMB) | payer BC, SELFPAY ==
[2023-11-05 11:12] VITALS: BP 140/70; PULSE 67; BMI 25.5
--- NOTE | 2023-11-05 11:12 | MHC.OFFVIS ---
Vital Signs 11/05/23 11:12 Height 6 ft Weight 187 lb 13.341 oz BMI 25.5 BP 140/70 H Blood Pressure Location Lt brachial Position Sitting Pulse 67 Intake Visit Reasons: 6 mth f/up w/ device ck Intake Note: pt is doing fine [employer] Required: No Accompanied by: Self / Same As Patient Allergies No Known Allergies Allergy (Verified 02/07/23 08:54) Medication List - Last Reconciled 11/05/23 by Javi Melgoza MD amlodipine 2.5 mg PO DAILY atorvastatin 10 mg PO DAILY famotidine (Heartburn Prevention) 20 mg PO DAILY hydralazine 10 mg PO BID PRN metoprolol succinate ER 25 mg PO DAILY omeprazole 20 mg PO BID paroxetine HCl 10 mg PO DAILY HPI Comments Details: Pawel comes for follow-up. In June 19May he had some shortness of breath that correlated increase OptiVol on the device monitoring system. However he did not take any diuretics. Since then his symptoms have been well controlled. He said he exercise regularly and has lot of energy and has no cardiac symptoms. Denies any palpitations, lightheadedness, syncope, ICD discharge. Takes all his medications. Recent echocardiogram shows normal LV ejection fraction with mildly dilated ascending aorta which is unchanged. Takes all his medications regularly. He takes his Florinef on variable doses based on how he is feeling. He does not monitor his blood pressure at home. [facility] Medical History Pulse generator of implantable cardioverter-defibrillator (ICD) at end of life Anxiety On beta watson at home Back pain Barretts esophagus GERD (gastroesophageal reflux disease) Dysautonomia Cardiac sarcoidosis ICD (implantable cardioverter-defibrillator) in place Surgical History History of esophagogastroduodenoscopy (EGD) Hx of colonoscopy History of permanent cardiac pacemaker placement Hx of hernia repair Hx of knee surgery Family History Father Hypotensive syncope Mother No problems noted. Social History Are you a primary care connector to a significant other at home: No Do you presently have visiting nurse or other home services: No Alcohol intake: current Alcohol intake frequency: holidays/special occasions only Patient Tobacco Use Status: Former Tobacco user Quit Date: 1989 Tobacco use type: Cigarette Years Smoked: 4 +/- Current occupational status: retired Current occupation: right hand dominant Review of Systems Const Denies chills, Denies fatigue, Denies fever(s), Denies frequent falls, Denies weakness, Denies weight gain and Denies weight loss ENT Denies dizziness Card Denies chest pain, Denies leg edema, Denies lightheadedness, Denies palpitations, Denies dyspnea and Denies dyspnea on exertion Resp Denies cough, Denies dyspnea and Denies dyspnea on exertion GI Denies hematochezia Musc Denies abnormal gait, Denies muscle weakness, Denies numbness, Denies radiating pain into limb and Denies tingling Neuro Denies abnormal gait, Denies dizziness, Denies frequent falls, Denies numbness, Denies tingling and Denies weakness Endo Denies fatigue and Denies palpitations Physical Exam Vital Signs: Last Vital Signs Pulse 67 11/05/23 11:12 BP 140/70 H 11/05/23 11:12 BMI result Body Mass Index 25.5 Const General: cooperative, comfortable, no acute distress, alert, awake and Physically active Nutritional Appearance: average body habitus and obese Orientation/consciousness: patient oriented x3 Limitations: no limitations Neck Neck: Yes trachea midline, Yes supple and Yes no JVD Resp Effort & Inspection: normal respiratory effort Auscultation: clear to auscultation bilaterally Cardio Jugular venous distension: no JVD Palpation: normal PMI Rate: regular rate Rhythm: regular rhythm Heart sounds: S1 normal heart sound present and S2 normal heart sound present GI Auscultation: normal bowel sounds Skin General skin exam: no rashes or lesions noted Neuro General: patient oriented x3 and no focal motor deficits Extrem General: Yes no clubbing, cyanosis or edema Psych Appearance: grossly normal Office Procedures Cardiac Device Check Cardiac Device Check Details: Dual-chamber Medtronic ICD in place. Programmed in MVP mode with rate response at 60 beats per minute. Ventricular pacing about 10% of the time. Atrial pacing about 48% of the time. No significant arrhythmias noted. Atrial pacing thresholds are excellent and reprogrammed to enhance battery life. Ventricular pacing thresholds adequate. Atrial ventricular sensing is excellent. Pacing and shock lead impedance is stable. Battery life is at about 10 years 78411-NP Cardiac Device Check, dual lead implantable defibrillator Procedure code (CPT) selection complete EKG Details: EKG shows normal sinus rhythm nonspecific T-wave changes 34216-Zokupqalklwyhpebb, Complete Assessment & Plan Assessment & Plan (1) ICD (implantable cardioverter-defibrillator) in place: Code(s): Z95.810 - Presence of automatic (implantable) cardiac defibrillator Category: Medical Plan: Dual-chamber ICD in place for prior history of AV block and subsequently having nonsustained VT and diagnose with cardiac sarcoidosis which time his dual-chamber pacemaker was upgraded to ICD placement in [place]. Since then he has been doing well. He has not had any significant worsening ventricular arrhythmias and/or ICD discharge. Continue metoprolol therapy. His recent echocardiogram shows normal LV systolic function. Avoidance of stimulants was discussed. Will continue to monitor for ICD function remotely. (2) Dysautonomia: Code(s): G90.1 - Familial dysautonomia [Errol-Day] Category: Medical Plan: Significant dysautonomia syndrome currently using Florinef as need be for his low blood pressure symptoms. Other times his blood pressures been significantly elevated he takes amlodipine on a daily basis and takes hydralazine as need be. Continue metoprolol therapy. Adequate hydration was discussed advised to call me with worsening symptoms although he knows how to manage his dysautonomia well. However advised him to monitor blood pressure intermittently at home. (3) Enlarged thoracic aorta: Code(s): I77.89 - Other specified disorders of arteries and arterioles Category: Medical Plan: Mildly enlarged thoracic aorta which has remained stable will follow with echocardiogram in 1 year's time. No surgical interventions required. Pathophysiology of aortic stenosis were discussed. Continue aggressive blood pressure control which starts with monitoring blood pressure at home intermittently. He understands and agrees. Will follow up in the clinic in 6 months time, sooner p.r.n.. Thank you for allowing me to partake in his Coding Level of Care Code Est Pt Level 4 (19776) Diagnoses ICD (implantable cardioverter-defibrillator) in place Z95.810 Dysautonomia G90.1 Enlarged thoracic aorta I77.89 CPT Codes Cardiac Device Check - Cardiac Device 5: 92941-PS Cardiac Device Check, dual lead implantable defibrillator ([id number]) EKG - CPT: 26191-Brlarxzmsbjlogrtm, Complete ([id number])
== END 2023-11-05 11:32 | disposition home or self-care (01) ==
PROVIDERS: PCP Internal Medicine; Visit Provider Internal Medicine Cardiovascular Disease
DX: G90.1 Familial dysautonomia [Riley-Day] (principal); I77.810 Thoracic aortic ectasia; Z95.810 Presence of automatic (implantable) cardiac defibrillator
CPT/HCPCS: 93010; 93283; 99214

== ENCOUNTER → 2023-11-05 11:00 | Outpatient (BNVA) | payer BC, SELFPAY | PROVIDERS: PCP Internal Medicine; Visit Provider Internal Medicine Cardiovascular Disease | DX: G90.1 Familial dysautonomia [Riley-Day] (principal); I77.89 Other specified disorders of arteries and arterioles; Z45.02 Encounter for adjustment and management of automatic implantable cardiac defibrillator | CPT/HCPCS: 93005 ==

== ENCOUNTER → 2025-01-19 09:46 | Outpatient (REF) | payer BC, SELFPAY ==
--- NOTE | 2025-01-19 09:48 | CA_ITS ---
Transthoracic Echocardiogram Patient (Last, First, Middle): Pawel Jaimes H Gender: Male Date of : 1960 Age: 64 Procedure Date: 01/19/2025 Procedure Type: Transthoracic Echocardiogram Location: OP Height: 182.88 cm Weight: 83.92 kg BSA: 2.06 m2 Heart Rate: bpm BP: 120 / 80 mmHg Teacher: MAGDA Referring MD: Javi Melgoza MD Symptoms: I77.89 - Other specified disorders of arteries and arterioles Study Quality: Adequate ECG Rhythm: Sinus Conclusions: - The left ventricular systolic function is normal. The calculated ejection fraction is 62% by biplane method. - No obvious valvular pathology seen on this study. - Top normal ascending aortic size at 3.7-3.8 cm. Findings Left Ventricle Normal left ventricular cavity size. The left ventricular systolic function is normal. The calculated ejection fraction is 62% by biplane method. There is no evidence of regional wall motion abnormalities. Diastolic function is normal for age. There is mild septal asymmetric hypertrophy. Right Ventricle Mildly increased right ventricular cavity size. There is normal right ventricular systolic function. There is a pacemaker wire seen in the right ventricle. Atria Both atria are normal in size. Aortic Valve There is a normal trileaflet aortic valve. There is no aortic valve stenosis. There is no aortic valve regurgitation. Mitral Valve The mitral valve appears normal. There is trace mitral valve regurgitation. There is no mitral valve stenosis. Pulmonic Valve The pulmonic valve is likely normal. Tricuspid Valve There is trace tricuspid valve regurgitation. There is no evidence of pulmonary hypertension. Great Vessels The sinuses of valsalva is normal in size. Top normal ascending aortic size at 3.7-3.8 cm. Venous The inferior vena cava is normal in size and collapses greater than 50% with inspiration. Pericardium/Pleural There is no evidence of pericardial effusion. Prior Study Comparison No significant change compared to prior study dated: 10/30/2023. Recommendations, Care & Conclusions No obvious valvular pathology seen on this study. Measurements 2D Linear Measurements IVSd: 1.19 0.6-0.9/0.6-1.0 cm LVIDd: 4.26 3.9-5.3/4.2-5.9 cm LVIDd Index: 2.07 2.4-3.2/2.2-3.1 cm/m2 LVIDs: 2.86 2.0-3.6 cm LVPWd: 0.69 0.7-1.1 cm LA Diam: 3.50 2.7-3.8/3.0-4.0 cm LAIDs Index: 1.70 1.5-2.3 cm/m2 LV Mass: 160.80 67-162/88-224 g LV Mass Index: 78.06 43-95/49-115 g/m2 LVOT Diam: 2.20 3.0+(-)1.3 cm 2D Systolic Function EF 4C: 62.00 >55% EF 2C: 62.10 >55% EF BiP: 61.50 >55% Mitral Valve MV Pk E: 0.51 MV PK A: 0.73 MV Decel Time: 229.00 E/A: 0.70 E'Lateral: 11.60 E'Medial: 6.31 E/E' Med: 8.10 E/E' Lat: 4.40 PHT: 67.00 MVA PHT: 3.28 Decel [place]: 2.25 Aortic Valve AoV Pk Joey: 1.02 AoV Mn Joey: 0.70 AoV VTI: 0.24 AoV Pk Grad: 4.00 Aov Mn Grad: 2.00 CAROL Cont.VTI: 3.40 LVOT LVOT Pk Joey: 0.90 LVOT Mn Joey: 0.64 LVOT VTI: 0.21 LVOT Pk Grad: 3.00 LVOT Mn Grad: 2.00 LVOT Diam: 2.20 LVOT Area: 3.80 Diastolic Function MV Pk E: 0.51 MV Pk A: 0.73 E/A: 0.70 E'Medial: 6.31 E/E' Med: 8.10 E' Laterial: 11.60 E/E' Lat: 4.40 Right Ventricle TAPSE (mm): 21.20 TVS' Joey: 11.10 Tricuspid Valve TR Pk Joey: 1.34 TR Pk Grad: 7.00 RA Press: 3.00 RVSP: 10.00 Great Vessels Aorta Sinus of Valsalva: 3.90 2.0-3.[address] [place]: 3.15 1.7-3.4 cm Ao Asc: 3.90 2.1-3.4 cm Updated in Other Vendor System with Status of Final Gabriel Bauer MD electronically signed on 01/19/2025 11:00:15 AM with status of Final
--- OUTSIDE RECORDS SUMMARY | 2025-01-19 10:21 | XMS_ITS | Patient Health Record ---
Author Organization [facility] Address [address] [place] [address] Care Team Providers Care Meeting Facilitator Name Role Phone Lawson Wisdom MD Primary Care Provider Montrell Tucker Unavailable [phone] Reason For Referral No Information Medications Medication SIG (Take, Route, Frequency, Duration) Notes Start Date End Date Status Nightsplint . . . AFO - L1930; Duration: . Active oxyCODONE HCl 5 MG (Schedule II Drug) TAKE 1 TABLET BY MOUTH TWICE A DAY NEEDED FOR PAIN Oral; Duration: 28 Not-Taking HYDROcodone-Acetaminophen 5-325 MG (Schedule II Drug) TAKE 1 TABLET BY MOUTH EVERY 6 HOURS FOR 7 DAYS NEEDED FOR PAIN Oral; Duration: 7 Not-Taking Omeprazole 20 MG TAKE ONE CAPSULE BY MOUTH EVERY DAY Oral; Duration: 30 Active Metoprolol Succinate Active Paxil Active Fludrocortisone Acetate Active Hydralazine-HCTZ Act gurdeep Atorvastatin Calcium Active Enoc Aspirin Active Social History Tobacco Use: Social History Observation Description Date Details (start date - stop date) Never Smoker NA - NA Tobacco Use/Smoking Question Answer Notes Are you a: nonsmoker Additional Findings: Tobacco Non-User Current no n-smoker Alcohol Screen Question Answer Notes Did you have a drink contain ing alcohol in the past year? Yes How often did you have a dri nk containing alcohol in the past year? 2 to 4 times a month (2 points) How many drinks did you have on a typical day when you were drinking in the past year? 1 or 2 drinks (0 point) How often did you have 6 or more drinks on one occasion in the past year? Never (0 point) Points 2 Interpretation Negative Tobacco use other than smoking: Question Answer Notes Are you an other tobacco user? No Problems Problem Type SNOMED Code ICD Code Onset Dates Problem Status W/U Status Risk Notes Problem Plantar fascial fibromatosis (31624225) Plantar fascial fibromatosis (M72.2) Active confirmed Plan Of Treatment Pending Test Test Name Order Date ,[id number]-FEA TENDON SHEATH/LIGAMENT 1 06/30/2016,[id number] TENDON SHEATH/LIGAMENT 1 07/24/2016,[id number] TENDON SHEATH/LIGAMENT 0 06/20/2017 X ray : Ankle, right 3V 03/06/2011 Insurance Providers Payer Name Payer Address Payer Phone Subscriber Number Group Number Insured Name Patient Relationship to Insured Coverage Start Date Coverage End Date [facility] [address] [place] [address] [id number] Jaimes Spouse - patient is the spouse of the insured Medical (General) History Medical History History ICD Code Back,Hip,and Knee pain Heart disease Reflux Depression Cholesterol Surgical History Surgery Date(Month/Year) Left knee repair /surgery 2008 cardiac pacemeker 2009
--- OUTSIDE RECORDS SUMMARY | 2025-01-19 10:21 | XMS_ITS | Encounter Summary ---
Author Organization [facility] Address [address] [place] [address] Phone Care Team Providers Care Pharmacology Associate Name Role Phone Juana Mcdonnell Lorin DELGADO Unavailable Jaimie Griffin MD Unavailable [phone] Shivam Isabel MD Unavailable [phone] Lawson Wisdom MD Primary Care Provider Javi Melgoza MD Unavailable [phone] Encounter Details Date Type Department Care Team (Late st Contact Info) Description 09/06/2020 Procedure [facility] [address] [place] [address] Social History Tobacco Use Types Packs/Day Years Used Date Smoking Tobacco: Never Smokeless Tobacco: Never Sex and Gender Information Value Date Recorded Sex Assigned at Male 03/13/2021 7:18 PM EDT Legal Sex Male 10:06 AM EST Gender Identity Male 03/13/2021 7:18 PM EDT Sexual Orientation Straight 09/05/2020 7: 06 PM EDT documented as of this encounter Plan of Treatment Upcoming Encounters Date Type Department Care Team (Late st Contact Info) Description 09/01/2025 2:00 PM EDT Telemedicine [facility] [address] [place] [address] Shivam Isabel MD [address] [facility] [place] [address] [email or web address] documented as of this encounter Visit Diagnoses Not on filedocumented in this encounter Additional Health Concerns Assessment Noted Time PHQ-9 Depression Total Score: 0 04/16/20 15 3:09 PM EDT PHQ-2 Depression Total Score: 0 01/30/20 20 1:56 PM EDT documented as of this encounter Care Teams Pharmacology Associate Relationship Specialty Start Date End Date Lawson Wisdom MD [address] [place] [address] 1 [place] [address] PCP - General Internal Medicine 04/02/15 Juana Mcdonnell NP [address] [place] [address] [place] [id number] [email or web address] Historical LMR Provider 10/31/1406/25/21 Jaimie Griffin MD [address] [place] [place] [address] Historical LMR Provider 10/31/14 2 Shivam Isabel MD [address] [place] [id number] [email or web address] Historical LMR Provider 10/31/14 Javi Melgoza MD [address] [place] [address] Cardiology 04/28/16 documented as of this encounter Additional Source Comments The information contained in this document represents components of the legal health record. It is not the complete legal health record.[facility]
--- OUTSIDE RECORDS SUMMARY | 2025-01-19 10:21 | XMS_ITS | Patient Health Record ---
Author Organization [facility] Address [address] [place] [address] Care Team Providers Care Stonemason Helper Name Role Phone Lawson Wisdom MD Primary Care Provider Greta Lopez Unavailable [phone] Allergies No Known Allergies Reason For Referral No Information Medications Medication SIG (Take, Route, Frequency, Duration) Notes Start Date End Date Status hydrALAZINE HCl 10 MG 1 tablet Orally on ce a day Active Metoprolol Succinate ER 50 MG 1 tablet O rally Once a day Active Omeprazole 20 MG 1 capsule Orally twi ce a day 03/19/2018 Active Famotidine 40 MG TAKE 1 TABLET BY ELVA TH TWICE A DAY FOR 60 for 90 Active Fludrocortisone Acetate 0.1 MG 1 tablet Orally bid Active Paxil 10 MG 5 ml in the morning Orally Once a day Active Metoprolol Succinate 50 MG 1 capsule Ora lly as needed Active Atorvastatin Calcium 20 MG 1 tablet Oral ly Once a day Active Immunizations Vaccine Route Administration Date Status Comme nts Influenza Unknown 02/16/2021 Administered Influenza Unknown 11/13/2018 Refused Problems Problem Type SNOMED Code ICD Code Onset Dates Problem Status W/U Status Risk Notes Problem Screening for malignant neoplasm of colon (762466161) Encounter for screening for malignant neoplasm of colon (Z12.11) Active confirmed Problem 552622460 Cartagena's esophagus without dysplasia (K22.70) Active confirmed Problem Epigastric pain (10214227) Abdominal pain, epigastric (R10.13) Active confirmed Problem 657067030 Gastroesophageal reflux disease without esophagitis (K21.9) Active confirmed Problem Gastroesophageal reflux disease (668859026) GERD (gastroesophageal reflux disease) (K21.9) Active confirmed Problem Cartagena esophagus (864943794) Cartagena esophagus (K22.70) Active confirmed Problem Gastroesophageal reflux disease (712160001) Esophageal reflux disease (K21.9) Active confirmed Problem Diverticulosis of colon (255068744) Diverticulosis of colon (K57.30) Active confirmed Problem 569026505 Cartagena''s esophagus without dysplasia (K22.70) Active confirmed Plan Of Treatment Pending Test Test Name Order Date US ABD 11/03/2021 Future Test Test Name Order Date UPPER GI ENDOSCOPY 09/15/2015 UPPER GI ENDOSCOPY 11/13/2018 UPPER GI ENDOSCOPY 11/22/2021 COLONOSCOPY 11/22/2021 Insurance Providers Payer Name Payer Address Payer Phone Subscriber Number Group Number Insured Name Patient Relationship to Insured Coverage Start Date Coverage End Date [email or web address] [address] [place] [address] [id number] Self - patient is the insured Medical (General) History Medical History History ICD Code Last colonoscopy was 01-31-20 11-negative except diverticulosis; also had a neg. colonoscopy in 2004. HTN Autonomic neuropathy with associated ort hostasis Pacemaker/Defibrillator GERD/Cartagena's esophagus--hi s last upper endoscopy was in 09/2015-this revealed a minimal hiatal hernia and small areas of Cartagena's esophagus, with biopsies negative for dysplasia; erosive gastritis with bx neg for H.pylori Anxiety Denies LA,DM,CVA,Lung disease,renal dise ase 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 Melgoza and a transplant surgeon(precautionary) in [place] Surgical History Surgery Date(Month/Year) Lap. Noel fundoplication Knee Pacemaker Defibrillator 05/2013
== END ==
LOC: HO.CARD 09:46
PROVIDERS: PCP Internal Medicine; Visit Provider Internal Medicine Cardiovascular Disease
DX: I77.89 Other specified disorders of arteries and arterioles (principal)
CPT/HCPCS: 93306

== ENCOUNTER → 2025-01-19 09:48 | Outpatient (BNV) | payer BC, SELFPAY | PROVIDERS: PCP Internal Medicine; Visit Provider Internal Medicine | DX: I42.2 Other hypertrophic cardiomyopathy (principal) | CPT/HCPCS: 93306 ==

== ENCOUNTER 2025-02-10 15:06 | Outpatient (AMB) | payer BC, SELFPAY ==
[2025-02-10 15:12] VITALS: BP 110/74; PULSE 62; BMI 25.1
--- NOTE | 2025-02-10 15:12 | MHC.OFFVIS ---
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 He has been doing well. He said he sometimes overdoes work in hot weather and sometimes feels symptoms. He then takes Florinef in his symptoms resolved. Overall he has been doing well. He has not had any significant lightheaded episodes or syncopal episodes. No prolonged palpitation irregular heartbeat. No ICD discharge. Denies any exertional chest pain or shortness of breath. Most recent echocardiogram shows mildly enlarged thoracic aorta with preserved LV ejection fraction. [facility] Medical History Pulse generator of implantable cardioverter-defibrillator (ICD) at end of life Anxiety On beta watson at home Back pain Barretts esophagus GERD (gastroesophageal reflux disease) Dysautonomia Cardiac sarcoidosis ICD (implantable cardioverter-defibrillator) in place Surgical History History of esophagogastroduodenoscopy (EGD) Hx of colonoscopy History of permanent cardiac pacemaker placement Hx of hernia repair Hx of knee surgery Family History Father Hypotensive syncope Mother No problems noted. Social History Are you a primary client care representative to a significant other at home: No Do you presently have visiting nurse or other home services: No Alcohol intake: current Alcohol intake frequency: holidays/special occasions only Patient Tobacco Use Status: Former Tobacco user Tobacco use type: Cigarette Years Smoked: 4 +/- Current occupational status: retired Current occupation: right hand dominant Review of Systems Const Denies chills, Denies fatigue, Denies fever(s), Denies frequent falls, Denies weakness, Denies weight gain and Denies weight loss ENT Denies dizziness Card Denies chest pain, Denies leg edema, Denies lightheadedness, Denies palpitations, Denies dyspnea, Denies dyspnea on exertion, Denies orthopnea and Denies other (loss of consciousness) Resp Denies cough, Denies dyspnea and Denies dyspnea on exertion GI Denies hematochezia and Denies change in stool character Musc Denies abnormal gait, Denies muscle weakness, Denies numbness, Denies radiating pain into limb and Denies tingling Neuro Denies abnormal gait, Denies dizziness, Denies frequent falls, Denies numbness, Denies tingling and Denies weakness Endo Denies fatigue and Denies palpitations Physical Exam Vital Signs: Last Vital Signs Pulse 62 02/10/25 15:12 BP 110/74 02/10/25 15:12 BMI result Body Mass Index 25.1 Const General: cooperative, comfortable, no acute distress, alert, awake and Physically active Nutritional Appearance: average body habitus and obese Orientation/consciousness: patient oriented x3 Limitations: no limitations Neck Neck: Yes trachea midline, Yes supple and Yes no JVD Resp Effort & Inspection: normal respiratory effort Auscultation: clear to auscultation bilaterally Cardio Jugular venous distension: no JVD Palpation: normal PMI Rate: regular rate Rhythm: regular rhythm Heart sounds: S1 normal heart sound present and S2 normal heart sound present GI Auscultation: normal bowel sounds Skin General skin exam: no rashes or lesions noted Neuro General: patient oriented x3 and no focal motor deficits Extrem General: Yes no clubbing, cyanosis or edema Psych Appearance: grossly normal Office Procedures Cardiac Device Check Cardiac Device Check Details: Dual-chamber Medtronic ICD in place. Programmed in MVP mode with rate response at 60 beats per minute. Atrial pacing 60% of the time. Atrial ventricular sensing is excellent. No arrhythmias detected. Atrial ventricular pacing thresholds excellent and reprogrammed to enhance battery life. Battery life is at 8.3 years. 22275-UN Cardiac Device Check, dual lead implantable defibrillator Procedure code (CPT) selection complete EKG Details: EKG shows atrially paced, ventricularly sensed rhythm with nonspecific T-wave inversions inferior leads. [id number], Complete Assessment & Plan Assessment & Plan (1) Dysautonomia: Code(s): G90.1 - Familial dysautonomia [Errol-Day] Category: Medical Plan: Patient with orthostatic dysautonomia syndrome with intermittent episodes of blood pressure. He manage his condition well with current therapy. Uses hydralazine as needed for elevated blood pressure. Uses Florinef otherwise. Maintains a lot of hydration. Understands orthostatic precautions in his symptoms well. Discussed with him about management and he understands and agrees. (2) ICD (implantable cardioverter-defibrillator) in place: Code(s): Z95.810 - Presence of automatic (implantable) cardiac defibrillator Category: Medical Plan: ICD in place, working well. Reprogrammed for adequate functioning. Will follow remotely every 3 months. (3) Enlarged thoracic aorta: Code(s): I77.89 - Other specified disorders of arteries and arterioles Category: Medical Plan: Mildly enlarged thoracic aorta which has remained stable. Continue aggressive blood pressure control which is currently well optimized. No surgical interventions required at this point time. Will follow up in the clinic in 6 months time, sooner p.r.n.. Thank you for allowing me to partake in his care Coding Level of Care Code Est Pt Level 4 (06277) Complex EM visit Add On G2211 Diagnoses Dysautonomia G90.1 ICD (implantable cardioverter-defibrillator) in place Z95.810 Enlarged thoracic aorta I77.89 CPT Codes Cardiac Device Check - Cardiac Device 5: 87628-OR Cardiac Device Check, dual lead implantable defibrillator ([id number]) EKG - CPT: 87233-[id number], Complete ([id number])
--- OUTSIDE RECORDS SUMMARY | 2025-02-10 16:01 | XMS_ITS | Patient Health Record ---
Author Organization [facility], located within [facility] Address [address] [place] [address] Care Team Providers Care Fastener Technologist Name Role Phone Lawson Wisdom MD Primary Care Provider Montrell Tucker Unavailable [phone] Reason For Referral No Information Medications Medication [...] Status Risk Notes Problem Plantar fascial fibromatosis (03548281) Plantar fascial fibromatosis (M72.2) Active confirmed Plan Of Treatment Pending Test Test Name Order Date ,[id number] TENDON SHEATH/LIGAMENT 1 06/30/2016,[id number] TENDON SHEATH/LIGAMENT 1 07/24/2016,[id number] TENDON SHEATH/LIGAMENT 0 06/20/2017 X ray : Ankle, right 3V 03/06/2011 Insurance Providers Payer Name Payer Address Payer Phone Subscriber Number Group Number Insured Name Patient Relationship to Insured Coverage Start Date Coverage End Date [facility] [address] [place] [address] [id number] Jaimes Spouse - patient is the spouse of the insured Medical (General) History Medical History History ICD Code Back,Hip,and Knee pain Heart disease Reflux Depression Cholesterol Surgical History Surgery Date(Month/Year) Left knee repair /surgery 2008 cardiac pacemeker 2009
--- OUTSIDE RECORDS SUMMARY | 2025-02-10 16:01 | XMS_ITS | Patient Health Record ---
Author Organization [facility] Address [address] [place] [id number] Care Team Providers Care Metal Model Builder Name Role Phone Lawson Wisdom MD Primary Care Provider Greta Lopez Unavailable [phone] Allergies No Known Allergies Reason For Referral [...] Problem Screening for malignant neoplasm of colon (760732188) Encounter for screening for malignant neoplasm of colon (Z12.11) Active confirmed Problem 530912203 [place]'s esophagus without dysplasia (K22.70) Active confirmed Problem Epigastric pain (08824647) Abdominal pain, epigastric (R10.13) Active confirmed Problem 376261409 Gastroesophageal reflux disease without esophagitis (K21.9) Active confirmed Problem Gastroesophageal reflux disease (142968503) GERD (gastroesophageal reflux disease) (K21.9) Active confirmed Problem [place]a esophagus (497192642) [place]a esophagus (K22.70) Active confirmed Problem Gastroesophageal reflux disease (029275175) Esophageal reflux disease (K21.9) Active confirmed Problem Diverticulosis of colon (947959234) Diverticulosis of colon (K57.30) Active confirmed Problem 390907242 Cartagena''s esophagus without dysplasia (K22.70) Active confirmed Plan Of Treatment Pending Test Test Name Order Date US ABD 11/03/2021 Future Test Test Name Order Date UPPER GI ENDOSCOPY 09/15/2015 UPPER GI ENDOSCOPY 11/13/2018 UPPER GI ENDOSCOPY 11/22/2021 COLONOSCOPY 11/22/2021 Insurance Providers Payer Name Payer Address Payer Phone Subscriber Number Group Number Insured Name Patient Relationship to Insured Coverage Start Date Coverage End Date [employer] In [employer] [address] [place] [address] [id number] Self - patient is [...] with bx neg for H.pylori Anxiety Denies AL,DM,CVA,Lung disease,renal dise ase 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 Melgoza and a transplant surgeon(precautionary) in [place] Surgical History Surgery Date(Month/Year) Lap. Noel fundoplication Knee Pacemaker Defibrillator 05/2013
== END 2025-02-10 15:38 | disposition home or self-care (01) ==
LOC: HO.HCS 15:06
PROVIDERS: PCP Internal Medicine; Visit Provider Internal Medicine Cardiovascular Disease
DX: G90.1 Familial dysautonomia [Riley-Day] (principal); Z95.810 Presence of automatic (implantable) cardiac defibrillator; I77.89 Other specified disorders of arteries and arterioles
CPT/HCPCS: 93010; 93283; 99214

== ENCOUNTER → 2025-02-10 15:06 | Outpatient (BNVA) | payer BC, SELFPAY | PROVIDERS: PCP Internal Medicine; Visit Provider Internal Medicine Cardiovascular Disease | DX: G90.1 Familial dysautonomia [Riley-Day] (principal); Z95.810 Presence of automatic (implantable) cardiac defibrillator; I77.89 Other specified disorders of arteries and arterioles | CPT/HCPCS: 93005 ==

== ENCOUNTER → 2025-06-12 16:07 | Outpatient (BNV) | payer BC, SELFPAY | PROVIDERS: PCP Internal Medicine; Visit Provider Internal Medicine Cardiovascular Disease | DX: Z95.810 Presence of automatic (implantable) cardiac defibrillator (principal) | CPT/HCPCS: 93297 ==

== ENCOUNTER → 2025-06-12 16:11 | Outpatient (BNV) | payer BC, SELFPAY | PROVIDERS: PCP Internal Medicine; Visit Provider Internal Medicine Cardiovascular Disease | DX: Z45.02 Encounter for adjustment and management of automatic implantable cardiac defibrillator (principal) | CPT/HCPCS: 93295 ==